=== PATIENT | male | born 1965 | race Caucasian/White ===

== ENCOUNTER 2024-06-30 04:52 | Inpatient (IN) ==
[2024-06-26 17:11] LABS: ALT/SGPT 18 U/L (<40); AST/SGOT 25 U/L (<40); Albumin 4.2 gm/dL (3.2-5.2); Albumin/Globulin Ratio 2.2 (1.0-2.3); Alkaline Phosphatase 82 U/L (39-117); Bilirubin,Total < 0.2 mg/dL (0.1-1.0); Blood Urea Nitrogen 6 mg/dL (6-20); Calcium 9.1 mg/dL (8.6-10.4); Carbon Dioxide 31 mmol/L (22-30); Chloride 101 mmol/L (96-108); Globulin 1.9 gm/dL (2.2-3.7); Glomerular Filtration Rate 105; Glucose 96 mg/dL (70-105); Potassium 4.5 mmol/L (3.3-5.1); Sodium 138 mmol/L (133-145)
[2024-06-26 20:00] LABS: Basophils # (Auto) 0.06 K/mcL (0.00-0.30); Basophils % (Auto) 0.8 % (0.0-2.0); Eosinophils # (Auto) 0.07 K/mcL (0.00-0.70); Eosinophils % (Auto) 0.9 % (0.0-7.0); Hematocrit 39.3 % (40.1-51.0); Hemoglobin 12.8 g/dL (13.7-17.5); Lymphocytes # (Auto) 1.92 K/mcL (1.50-4.80); Lymphocytes % (Auto) 24.7 % (15.5-49.0); Mean Cell Volume 91.2 fL (80.0-100.0); Mean Corpuscular HGB Conc 32.6 g/dL (31.0-36.0); Mean Platelet Volume 10.7 fL (8.8-12.5); Monocytes # (Auto) 0.53 K/mcL (0.10-0.90); Monocytes % (Auto) 6.8 % (1.0-12.0); Neutrophils % (Auto) 66.7 % (38.0-78.0); Platelet Count 255 K/mcL (140-440); RBC 4.31 M/mcL (4.63-6.08); Red Cell Distribution Width 14.2 % (11.5-14.5); WBC 7.8 K/mcL (4.5-11.0)
[2024-06-30] MEDS ORDERED: SCOPOLAMINE 1 PATCH PATCH TOPICAL PRN (05:15)
[2024-06-30] MEDS ORDERED: IPRATROPIUM/ALBUTEROL 3 ML AMPUL.NEB NEB PRN ×2 (05:15→08:51)
[2024-06-30] MEDS ORDERED: KETAMINE 50 MG/ML Syringe IV ONE (07:13)
[2024-06-30] MEDS ORDERED: MAGNESIUM SULFATE 2 GM/50 ML BAG IV ONE (07:14)
[2024-06-30] MEDS ORDERED: LIDOCAINE 2% PF 5 ML VIAL ONE (07:14)
[2024-06-30] MEDS ORDERED: ONDANSETRON 4 MG/2 ML VIAL ONE (07:14)
[2024-06-30] MEDS ORDERED: PROPOFOL 200 MG/20 ML VIAL IV ONE (07:14)
[2024-06-30] MEDS ORDERED: ROCURONIUM 10 MG/ML ML IV ONE ×2 (07:14→08:39)
[2024-06-30] MEDS ORDERED: fentaNYL 100 MCG/2 ML VIAL ONE (07:14)
[2024-06-30] MEDS ORDERED: DEXAMETHASONE 10 MG/ML VIAL ONE (07:14)
[2024-06-30] MEDS: CEFEPIME 2 GM VIAL IV SCH (07:35)
[2024-06-30] MEDS ORDERED: ePHEDrine 50 MG/5 ML SYRINGE (ANEST) IV ONE (07:42)
[2024-06-30] MEDS ORDERED: diphenhydrAMINE 50 MG/ML VIAL IV PRN (08:51)
[2024-06-30] MEDS ORDERED: NALOXONE HCL 0.4 MG/ML VIAL IV PRN (08:51)
[2024-06-30] MEDS ORDERED: LACTATED RINGERS 250 ML IV PRN (08:51)
[2024-06-30] MEDS ORDERED: ONDANSETRON 4 MG/2 ML VIAL IV PRN (08:51)
[2024-06-30] MEDS ORDERED: SUGAMMADEX SODIUM 200 MG/2 ML VIAL IV ONE (08:59)
[2024-06-30] MEDS: ACETAMINOPHEN 1,000 MG/100 ML BAG IV ONE (09:27)
[2024-06-30] MEDS: fentaNYL 100 MCG/2 ML VIAL IV PRN (10:01)
[2024-06-30] MEDS: MEPERIDINE 25 MG/ML VIAL IV PRN (10:14)
[2024-06-30] MEDS: HYDROmorphone 0.5 MG/0.5 ML SYRINGE IV ONE (10:18)
[2024-06-30] MEDS: LEVOFLOXACIN 750 MG/150 ML BAG IV SCH (10:54)
[2024-06-30] MEDS: 0.9 % SODIUM CHLORIDE 1,000 ML IV SCH (10:55)
[2024-06-30] MEDS: LACTATED RINGERS 1,000 ML IV SCH (10:58)
[2024-06-30] MEDS: HYDROmorphone 0.5 MG/0.5 ML SYRINGE ONE (10:58)
[2024-06-30] MEDS: HYDROmorphone 1 MG/ML SYRINGE IV PRN (11:26)
[2024-06-30] MEDS: METOCLOPRAMIDE 10 MG/2 ML VIAL IV SCH (11:31)
[2024-06-30] MEDS: ACETAMINOPHEN 1,000 MG/100 ML BAG IV SCH (12:24)
[2024-06-30 13:53] LABS: Basophils # (Auto) 0.05 K/mcL (0.00-0.30); Basophils % (Auto) 0.3 % (0.0-2.0); Eosinophils # (Auto) 0 K/mcL (0.00-0.70); Eosinophils % (Auto) 0 % (0.0-7.0); Hematocrit 41.3 % (40.1-51.0); Hemoglobin 13.4 g/dL (13.7-17.5); Lymphocytes # (Auto) 0.46 K/mcL (1.50-4.80); Lymphocytes % (Auto) 2.7 % (15.5-49.0); Mean Corpuscular HGB Conc 32.4 g/dL (31.0-36.0); Mean Platelet Volume 9.5 fL (8.8-12.5); Neutrophils % (Auto) 93.8 % (38.0-78.0); Platelet Count 227 K/mcL (140-440); RBC 4.44 M/mcL (4.63-6.08); Red Cell Distribution Width 14.2 % (11.5-14.5); WBC 16.7 K/mcL (4.5-11.0)
[2024-06-30] MEDS: ONDANSETRON 4 MG/2 ML VIAL IV PRN (23:09)
[2024-07-01] MEDS: ONDANSETRON 4 MG/2 ML VIAL ONE (00:41)
[2024-07-01 06:45] LABS: ALT/SGPT 15 U/L (<40); AST/SGOT 21 U/L (<40); Albumin 3.6 gm/dL (3.2-5.2); Albumin/Globulin Ratio 1.9 (1.0-2.3); Alkaline Phosphatase 71 U/L (39-117); Bilirubin,Direct < 0.2 mg/dL (0-0.3); Bilirubin,Total < 0.2 mg/dL (0.1-1.0); Blood Urea Nitrogen 9 mg/dL (6-20); Calcium 8.8 mg/dL (8.6-10.4); Carbon Dioxide 27 mmol/L (22-30); Chloride 103 mmol/L (96-108); Globulin 1.9 gm/dL (2.2-3.7); Glomerular Filtration Rate 121; Glucose 105 mg/dL (70-105); Lactate Dehydrogenase 167 U/L (135-225); Phosphorous 4.2 mg/dL (2.5-4.5); Potassium 4.4 mmol/L (3.3-5.1); Sodium 139 mmol/L (133-145); Triglycerides 93 mg/dL (<150); Uric Acid 3.2 mg/dL (2.5-8.0)
[2024-07-01] MEDS ORDERED: ONDANSETRON 4 MG ODT TABLET SL PRN (15:14)
[2024-07-01] MEDS: IPRATROPIUM/ALBUTEROL 3 ML AMPUL.NEB NEB SCH (15:46)
[2024-07-01] MEDS: PYRIDOSTIGMINE BROMIDE 10 MG/2 ML AMPUL IV SCH (15:53)
[2024-07-01] MEDS: tiZANidine 4 MG TABLET PO SCH (15:53)
[2024-07-01] MEDS: PRUCALOPRIDE 2 MG PO SCH (16:11)
[2024-07-01] MEDS: ERYTHROMYCIN BASE 250 MG TABLET PO SCH (16:14)
[2024-07-01] MEDS: DICYCLOMINE 20 MG TABLET PO SCH (16:18)
[2024-07-01] MEDS: GABAPENTIN 300 MG CAPSULE PO SCH (16:23)
[2024-07-01] MEDS: METHOCARBAMOL 750 MG TABLET PO PRN (21:23)
[2024-07-01] MEDS: TAMSULOSIN 0.4 MG CAPSULE PO SCH (21:23)
[2024-07-01] MEDS: BETHANECHOL 10 MG TABLET PO SCH (21:23)
[2024-07-01] MEDS: DIAZEPAM 2 MG TABLET PO PRN (21:24)
[2024-07-02] MEDS: SERTRALINE 100 MG TABLET PO SCH (08:55)
[2024-07-03 06:44] LABS: Basophils # (Auto) 0.03 K/mcL (0.00-0.30); Basophils % (Auto) 0.3 % (0.0-2.0); Eosinophils # (Auto) 0.03 K/mcL (0.00-0.70); Eosinophils % (Auto) 0.3 % (0.0-7.0); Hematocrit 38.8 % (40.1-51.0); Hemoglobin 12.7 g/dL (13.7-17.5); Lymphocytes # (Auto) 0.92 K/mcL (1.50-4.80); Mean Cell Volume 92.6 fL (80.0-100.0); Mean Corpuscular HGB Conc 32.7 g/dL (31.0-36.0); Mean Platelet Volume 10.5 fL (8.8-12.5); Monocytes % (Auto) 9.7 % (1.0-12.0); Neutrophils % (Auto) 80.5 % (38.0-78.0); Platelet Count 213 K/mcL (140-440); RBC 4.19 M/mcL (4.63-6.08); Red Cell Distribution Width 14.4 % (11.5-14.5); WBC 10.3 K/mcL (4.5-11.0)
[2024-07-03 07:07] LABS: ALT/SGPT 17 U/L (<40); AST/SGOT 23 U/L (<40); Albumin 3.3 gm/dL (3.2-5.2); Albumin/Globulin Ratio 1.6 (1.0-2.3); Alkaline Phosphatase 86 U/L (39-117); Bilirubin,Direct < 0.2 mg/dL (0-0.3); Bilirubin,Total 0.2 mg/dL (0.1-1.0); Blood Urea Nitrogen 12 mg/dL (6-20); Calcium 8.5 mg/dL (8.6-10.4); Carbon Dioxide 27 mmol/L (22-30); Chloride 102 mmol/L (96-108); Globulin 2.1 gm/dL (2.2-3.7); Glomerular Filtration Rate 132; Glucose 130 mg/dL (70-105); Lactate Dehydrogenase 140 U/L (135-225); Phosphorous 2.9 mg/dL (2.5-4.5); Sodium 136 mmol/L (133-145); Triglycerides 67 mg/dL (<150); Uric Acid 2.3 mg/dL (2.5-8.0)
[2024-07-03] MEDS: METOCLOPRAMIDE 10 MG TABLET PO SCH (14:16)
[2024-07-03] MEDS: ERYTHROMYCIN BASE 250 MG TABLET PO SCH (14:21)
[2024-07-03] MEDS: PYRIDOSTIGMINE 60 MG TABLET PO SCH (17:23)
[2024-07-04 06:34] LABS: Basophils # (Auto) 0.03 K/mcL (0.00-0.30); Basophils % (Auto) 0.2 % (0.0-2.0); Eosinophils % (Auto) 0.8 % (0.0-7.0); Hematocrit 38.5 % (40.1-51.0); Hemoglobin 12.6 g/dL (13.7-17.5); Lymphocytes # (Auto) 0.88 K/mcL (1.50-4.80); Lymphocytes % (Auto) 6.9 % (15.5-49.0); Mean Cell Volume 93.2 fL (80.0-100.0); Mean Corpuscular HGB Conc 32.7 g/dL (31.0-36.0); Mean Platelet Volume 10.8 fL (8.8-12.5); Monocytes # (Auto) 1.21 K/mcL (0.10-0.90); Monocytes % (Auto) 9.4 % (1.0-12.0); Neutrophils % (Auto) 82.6 % (38.0-78.0); Platelet Count 233 K/mcL (140-440); RBC 4.13 M/mcL (4.63-6.08); Red Cell Distribution Width 14.3 % (11.5-14.5); WBC 12.8 K/mcL (4.5-11.0)
[2024-07-04 07:07] LABS: ALT/SGPT 20 U/L (<40); AST/SGOT 25 U/L (<40); Albumin 3.3 gm/dL (3.2-5.2); Albumin/Globulin Ratio 1.5 (1.0-2.3); Alkaline Phosphatase 97 U/L (39-117); Bilirubin,Direct < 0.2 mg/dL (0-0.3); Bilirubin,Total 0.2 mg/dL (0.1-1.0); Blood Urea Nitrogen 8 mg/dL (6-20); Calcium 8.5 mg/dL (8.6-10.4); Carbon Dioxide 29 mmol/L (22-30); Chloride 100 mmol/L (96-108); Globulin 2.2 gm/dL (2.2-3.7); Glomerular Filtration Rate 132; Glucose 116 mg/dL (70-105); Lactate Dehydrogenase 144 U/L (135-225); Phosphorous 2.7 mg/dL (2.5-4.5); Sodium 136 mmol/L (133-145); Triglycerides 70 mg/dL (<150); Uric Acid 1.9 mg/dL (2.5-8.0)
[2024-07-04] MEDS: MAGNESIUM HYDROXIDE 30 ML ORAL.SUSP PO PRN (16:20)
[2024-07-04] MEDS: oxyCODONE IR 5 MG TABLET PO PRN (16:20)
[2024-07-05 06:16] LABS: Basophils # (Auto) 0.02 K/mcL (0.00-0.30); Basophils % (Auto) 0.1 % (0.0-2.0); Eosinophils # (Auto) 0.16 K/mcL (0.00-0.70); Eosinophils % (Auto) 1.2 % (0.0-7.0); Hematocrit 36.1 % (40.1-51.0); Hemoglobin 11.9 g/dL (13.7-17.5); Lymphocytes % (Auto) 7.5 % (15.5-49.0); Mean Cell Volume 92.1 fL (80.0-100.0); Mean Platelet Volume 10.6 fL (8.8-12.5); Monocytes # (Auto) 1.15 K/mcL (0.10-0.90); Monocytes % (Auto) 8.6 % (1.0-12.0); Neutrophils % (Auto) 82.5 % (38.0-78.0); Platelet Count 251 K/mcL (140-440); RBC 3.92 M/mcL (4.63-6.08); WBC 13.4 K/mcL (4.5-11.0)
[2024-07-05 06:39] LABS: Erythrocyte Sedimentation Rate 46 mm/hr (0-20)
[2024-07-05 06:44] LABS: ALT/SGPT 25 U/L (<40); AST/SGOT 30 U/L (<40); Albumin 3.1 gm/dL (3.2-5.2); Albumin/Globulin Ratio 1.3 (1.0-2.3); Alkaline Phosphatase 120 U/L (39-117); Bilirubin,Direct < 0.2 mg/dL (0-0.3); Bilirubin,Total 0.3 mg/dL (0.1-1.0); Blood Urea Nitrogen 8 mg/dL (6-20); Calcium 8.5 mg/dL (8.6-10.4); Carbon Dioxide 30 mmol/L (22-30); Chloride 101 mmol/L (96-108); Globulin 2.3 gm/dL (2.2-3.7); Glomerular Filtration Rate 132; Glucose 112 mg/dL (70-105); Lactate Dehydrogenase 173 U/L (135-225); Phosphorous 3.1 mg/dL (2.5-4.5); Potassium 3.9 mmol/L (3.3-5.1); Sodium 138 mmol/L (133-145); Triglycerides 87 mg/dL (<150)
[2024-07-05] MEDS: HYDROmorphone 1 MG/ML SYRINGE IV PRN (08:39)
[2024-07-05] MEDS: MAGNESIUM HYDROXIDE 30 ML ORAL.SUSP PO PRN (18:26)
[2024-07-05] MEDS: MAGNESIUM HYDROXIDE 30 ML ORAL.SUSP ONE (19:13)
[2024-07-06 19:44] LABS: ALT/SGPT 25 U/L (<40); AST/SGOT 31 U/L (<40); Albumin 3.4 gm/dL (3.2-5.2); Albumin/Globulin Ratio 1.4 (1.0-2.3); Alkaline Phosphatase 138 U/L (39-117); Bilirubin,Direct < 0.2 mg/dL (0-0.3); Bilirubin,Total 0.3 mg/dL (0.1-1.0); Blood Urea Nitrogen 8 mg/dL (6-20); Carbon Dioxide 30 mmol/L (22-30); Chloride 97 mmol/L (96-108); Globulin 2.5 gm/dL (2.2-3.7); Glomerular Filtration Rate 132; Glucose 108 mg/dL (70-105); Lactate Dehydrogenase 222 U/L (135-225); Phosphorous 3.6 mg/dL (2.5-4.5); Potassium 3.8 mmol/L (3.3-5.1); Sodium 135 mmol/L (133-145); Triglycerides 80 mg/dL (<150)
[2024-07-06 20:01] LABS: Prealbumin 11.1 mg/dL (20.0-40.0)
[2024-07-06] MEDS: CHLORHEXIDINE GLUCONATE 15 ML UDC SWABMOUTH SCH (20:46)
[2024-07-07 07:18] LABS: ALT/SGPT 24 U/L (<40); AST/SGOT 31 U/L (<40); Albumin 3.3 gm/dL (3.2-5.2); Albumin/Globulin Ratio 1.3 (1.0-2.3); Alkaline Phosphatase 154 U/L (39-117); Bilirubin,Direct < 0.2 mg/dL (0-0.3); Bilirubin,Total 0.3 mg/dL (0.1-1.0); Blood Urea Nitrogen 8 mg/dL (6-20); Calcium 8.9 mg/dL (8.6-10.4); Carbon Dioxide 28 mmol/L (22-30); Chloride 98 mmol/L (96-108); Globulin 2.6 gm/dL (2.2-3.7); Glomerular Filtration Rate 132; Glucose 113 mg/dL (70-105); Lactate Dehydrogenase 243 U/L (135-225); Phosphorous 3.7 mg/dL (2.5-4.5); Potassium 4.2 mmol/L (3.3-5.1); Sodium 135 mmol/L (133-145); Triglycerides 76 mg/dL (<150)
== END 2024-07-07 16:52 | disposition home or self-care (01) | DRG 392 ==
LOC: MEDSUR 04:52
PROVIDERS: ADMIT Family Medicine Adult Medicine; ATTEND Family Medicine Adult Medicine